=== PATIENT | female | born 1935 | race Asian ===

== ENCOUNTER 2017-03-12 09:04 | Observation (INO) | payer MEDICARE ==
[~2017-03-12] VITALS: Ht 162.6 cm; Wt 65.1 kg
[2017-03-12] VITALS (7 sets, daily range): BP systolic 130–149; BP diastolic 47–67; PULSE 54–58; RESP 10–20; O2SAT 94–97
[~2017-03-12 09:04] MED LIST: GLU500 PO; VERA180C5 PO; [UNRECOGNIZED DRUG - CODE] PO; [UNRECOGNIZED DRUG - CODE] PO
--- NOTE | 2017-03-12 09:20 | ED.REPORT ---
HPI-Abd Pain F 40 and Over Date of Service Mar 12, 2017 ED Provider: Meet Hearn MD Pt is an 81 y/o Japanese speaking female w/ a hx of GERD, HTN, DM, HLD, presenting to the ED w/ her daughter c/o nausea and vomiting onset 4 days ago. She has been experiencing persisting nausea and vomiting for 4 days, about 3-4 episodes each day. She had a black diarrheal stool yesterday. She c/o associated epigastric abdominal pain, chills, diaphoresis. Pt denies fever, SOB , cough. She states she experiences burning pain that tracks from the esophagus to the epigastrium when she drinks water. Symptoms are exacerbated by eating. The patient does experience acid reflux and previously used Prilosec but hasn't used any for 2 years. Pepto Bismol provided no relief. The patient had an endoscopy about 2 years ago performed at [facility] by request of her oncologist with benign polyps discovered. She does have a strong family history of gallbladder disease. Nursing Notes Stated Complaint: STOMACH PAIN Chief Complaint: Female Abdominal Pain Nursing Notes Reviewed: Yes ([employer] not reconciled) Allergies: Coded Allergies: No Known Allergies (Verified Allergy, Unknown, 03/12/17) Scheduled Aspirin-Expunged Drug, Do Not Renew! (Aspirin-Expunged Drug, Do Not Renew!) 500 Mg Tablet 81 MG PO DAILY Metformin-Expunged Drug, Do Not Renew! (Metformin-Expunged Drug, Do Not Renew!) 500 Mg Tablet 500 MG PO AM AM Metformin-Expunged Drug, Do Not Renew! (Metformin-Expunged Drug, Do Not Renew!) 500 Mg Tablet 1,000 MG PO HS TAKE WITH EVENING MEAL Miscellaneous Medications Benazepril-Expunged Drug, Do Not Renew! (Lotensin-Expunged Drug, Do Not Renew!) 5 Mg Tablet 0 PO Verapamil-Expunged Drug, Do Not Renew! (Verapamil-Expunged Drug, Do Not Renew!) 180 Mg Cap24h.pel 0 PO General Time Seen by MD: 09:09 Chief Complaint Vomiting moderate Hx Obtained From: Patient, Daughter Arrived By: Walk-in Sudden in Onset?: No Onset Occurred: 4 days ago Symptom Duration: Since onset Progression since Onset: Constant Location: : Epigastric Quality: Painful Severity: Current: Moderate Severity: Maximum: Moderate Recent Healthcare: No recent hospitalization Past Medical History Past Medical History Notes: Last seen in emergency department June 2012 for abdominal pain, unknown etiology right upper quadrant ultrasound negative at that time Past Medical History History of GERD w/Marshall's esophagus (Followed by GI in [place], ) History of breast cancer Diabetes Hypertension Hyperlipidemia Past Surgical History Right breast repair Hysterectomy Endoscopy Family History Family history of gallstones Smoking History Never Smoker Social History Alcohol Use: Denies alcohol use Drug Use: Denies drug use Other Social History: Good social support Ambulatory Status Independent Review of Systems Constitutional: Reports: Chills, Denies: Fever Respiratory: Denies: Non-productive cough, Shortness of breath GI: Reports: Abdominal pain, Bloody/tarry stool, Diarrhea, Nausea, Vomiting Complete sys rev & neg: except as marked. Skin: Reports Diaphoresis Physical Exam Vital Signs Vital Signs (First) Date Time Temp Pulse Resp B/P Pulse Ox O2 Delivery O2 Flow Rate FiO2 03/12/17 09:08 36.4 58 10 148/67 97 Room Air Initial VS: Reviewed, Vital signs normal Head / Eyes: Atraumatic, Normocephalic, PERRL ENT: Mucous membranes moist, Conjunctiva normal, No scleral icterus Neck: Supple, Full range of motion Extremities: Vascular intact, Neuro intact, No swelling Skin: Warm, Dry, No cyanosis Neurologic: Alert, Oriented, Nonfocal Psychiatric: Mood/affect normal, Behavior normal, Normal thought content General/Constitutional: Awake, Alert, No acute distress, Cooperative, Not toxic appearing Distress / Hydration: Positive: Dehydration mild Fatigued appearing Respiratory / Chest: Breath sounds NL, Breath sounds = bilat, No respiratory distress, No rales, No rhonchi, No wheezing Cardiovascular: Heart rate NL, Regular rhythm, Heart sounds NL, No murmurs Abdomen: Atraumatic, Soft, Non-tender, No guarding, No rebound, No distention, No palpable mass Back: Full range of motion, Painless range of motion Interpretation & Diagnostics Interpretation & Diagnostics: US RUQ: IMPRESSION: Gallbladder sludge, and possible gallstone in the neck. Borderline gallbladder wall thickening however no other sonographic criteria for acute cholecystitis, therefore please correlate clinically and with LFTs. Dictated by: Braden Banks M.D. on 03/12/2017 at 11:28 Approved by: Braden Banks M.D. on 03/12/2017 at 11:29 Lab Results Interpretation Result Diagram: 03/12/17 0951 03/12/17 0951 Test 03/12/17 09:51 White Blood Count 7.5th/mm3 (3.8-10.1) Red Blood Count 3.58mil/mm3 (3.90-5.20) Hemoglobin 10.4g/dL (12.0-15.6) Hematocrit 31.2% (35.0-46.0) Mean Corpuscular Volume 87.2fL (81-100) Mean Corpuscular Hemoglobin 29.1pg (27.0-35.0) Mean Corpuscular Hemoglobin Concent 33.3% (32.0-37.0) Red Cell Distribution Width 13.0% (12.3-15.4) Platelet Count 289bil/L (150-400) Neutrophils (%) (Auto) 64.4% (40-74) Lymphocytes (%) (Auto) 24.6% (14-46) Monocytes (%) (Auto) 9.3% (4-12) Eosinophils (%) (Auto) 1.5% (0-5) Basophils (%) (Auto) 0.1% (0-3) Sodium Level 138mEq/L (134-144) Potassium Level 4.2mEq/L (3.5-5.2) Chloride Level 101mEq/L (97-108) Carbon Dioxide Level 23mmol/L (18-29) Blood Urea Nitrogen 16mg/dL (8-27) Creatinine 0.97mg/dL (0.57-1.00) Estimat Glomerular Filtration Rate 79mL/min (>59) Glucose Level 101mg/dL (60-99) Lactic Acid Level 1.1mmol/L (0.4-2.0) Calcium Level 9.2mg/dL (8.5-10.1) Magnesium Level 2.2mg/dL (1.6-2.6) Total Bilirubin 0.6mg/dL (0.0-1.2) Aspartate Amino Transf (AST/SGOT) 15U/L (0-50) Alanine Aminotransferase (ALT/SGPT) 8U/L (0-32) Alkaline Phosphatase 51U/L (25-165) Troponin T 0.010ug/L (0.0-0.011) Total Protein 7.3g/dL (6.4-8.4) Albumin 4.5g/dL (3.4-5.0) Lipase 34U/L (13-60) Lab Results Interpretation: CBC normal CMP normal lipase normal ECG Interpretation ECG Interpretation: Sinus bradycardia rate 54 No prior available for comparison Time: 10:33 Interpreted by: ED physician Normal ECG Interpretation: Normal sinus rhythm, No acute ischemic changes, Normal QRS, Normal axis, Normal intervals, Adequate tracing CT Abd / Pelvis Interpretation IMPRESSION: No acute abnormality. Normal appendix. Hepatic steatosis. Nonspecific 4 mm nodule right lung base. Recommend followup noncontrast chest CT in one year to exclude early metastatic/malignant possibilities. Dictated by: Braden Banks M.D. on 03/12/2017 at 12:17 Approved by: Braden Banks M.D. on 03/12/2017 at 12:25 Study type: Abdominal CT IV contrast Interpretation / Wet Read by: Interpret - Radiologist Re-Eval/Medical Decision Med Decision/Clinical Course This is an 81-year-old Japanese female who presents complaining of epigastric pain nausea and increasing weakness since the past 4-5 days. Spent trying to get her to come to the emergency department, she has not been doing well-but she is thus far refused. Yesterday she took a hydrocodone for her discomfort which seemed to help-symptoms persist, she is very weak, and so was brought to the emergency department. She denies shreya fever, she does have a history of Law's esophagus and is supposed to be on a proton pump inhibitor while aside but has not been taking this in recent weeks. She denies GI bleeding. On exam she is very fatigued-but I do not appreciate significant abdominal tenderness. Initial blood work was normal, IV fluids and nausea medicine were given. EKG is without acute ischemic change. An ultrasound of the abdomen was obtained, and the preliminary tech read was probable cholecystitis, although the official radiology over read is more equivocal. Clinically I find her exam equivocal as well, but he discussed the case with the surgery hospitalist. Initial plan is admission, observation and serial exams. Continued hydration and antiemetics are indicated. Differential includes gastritis-patient reports she is followed by GI in [place] and had endoscopy there, records were obtained confirming the last endoscopy in 2010 for Law's esophagus Source of Hx: Old records Re-Evaluation/Progress : Time of Eval: 11:10 Patient Status: Moderate relief, Pain improved Re-Evaluation/Progress Note: Pt rechecked. Discussing imaging findings and likely need for surgery. Informed pt of need for admission. Pt understands and agrees with plan for admission. All questions addressed. Consultation #1: Referral / Consult Name: Yessica Prince MD Consulted With: Surgeon Call Returned at: 11:21 Life Science Research Assistant: Agrees with eval, Agrees with plan Note: Requests CT abd/pelvis. Consultation #2: Referral / Consult Name: Varinder Antonio MD Consulted With: Hospitalist Call Returned at: 11:37 Life Science Research Assistant: Will see patient, Agrees with eval, Agrees with plan, Accepts admit Differential Diagnosis: Positive: Acute abdominal pain, Negative: Abdominal aortic aneurysm, Ectopic , Esophageal rupture, Gun shot wound abdomen, Peritonitis, Stab wound abdomen, Trauma, abdominal Counseled Regarding: Diagnosis, Lab results, Need for admission Discharge & Departure Primary Impression: Abdominal pain Additional Impressions: Nausea Dehydration Cholelithiasis Disposition: ADMITTED TO HOSPITAL Discharge Condition All VS Reviewed: Yes Condition: Stable Referrals: Saw Crystal MD (PCP) Scribe Attestation Portions of this note were transcribed by Mingo Thapa. I, Dr. Hearn personally performed the history, physical exam and medical decision-making; I reviewed and confirmed the accuracy of the information in the transcribed note. copies to: Saw Crystal MD, Matthew F MD Mar 12, 2017 09:19 MINGO THAPA Mar 12, 2017 09:26
[2017-03-12] MEDS ORDERED: 0.9% Sodium Chloride 1,000 ML IV ONE (09:30)
[2017-03-12] MEDS ORDERED: Ondansetron 2 mg/mL 2 mL Inj IVPUSH ONE (09:30)
[2017-03-12] MEDS ORDERED: LidocaineVisc 2%:Antacid 1:1 10 mL Syringe PO ONE (09:35)
[2017-03-12 10:25] LABS: BASOPHILS % (AUTO) 0.1 % (0-3); EOSINOPHILS % (AUTO) 1.5 % (0-5); MONOCYTES % (AUTO) 9.3 % (4-12); Mean Corpuscular Hemoglobin 29.1 pg (27.0-35.0); Mean Corpuscular Volume 87.2 fL (81-100); NEUTROPHILS % (AUTO) 64.4 % (40-74); Platelet Count 289 bil/L (150-400)
[2017-03-12 10:50] LABS: Magnesium 2.2 mg/dL (1.6-2.6)
--- NOTE | 2017-03-12 11:32 | DRSVH ---
PROCEDURE: US ABDOMEN, LIMITED ([id number]) INDICATIONS: epigastric pain TECHNIQUE: Real-time focused scanning was performed of the abdomen, with image documentation. COMPARISON: None. FINDINGS: Liver is unremarkable. No intra-or extrahepatic no ductal dilatation. The gallbladder conta ins sludge. There is a possible gallstone at the gallbladder neck and there is borderline gallbladder wall thickening, however no pericholecystic fluid or sonographic Crain sign. Pancreas is grossly un remarkable. IMPRESSION: Gallbladder sludge, and possible gallstone in the neck. Borderline gallbladder wall thickening howeve r no other sonographic criteria for acute cholecystitis, therefore please correlate clinically and wi th LFTs. Dictated by: Braden Banks M.D. on 03/12/2017 at 11:28 Approved by: Braden Banks M.D. on 03/12/2017 at 11:29
[2017-03-12] MEDS ORDERED: Ondansetron 2 mg/mL 2 mL Inj IVPUSH PRN (11:40)
[2017-03-12] MEDS ORDERED: Alum-Mag Hydrox-Simeth 30 mL Suspension PO PRN (11:40)
[2017-03-12] MEDS ORDERED: Polyethylene Glycol (PEG) 17 Gm Powder PO PRN (11:40)
[2017-03-12] MEDS ORDERED: Glucose 40% Oral Gel 15 Gm Tube PO PRN (11:45)
[2017-03-12] MEDS: Insulin LISPRO 300 Unit/3 mL Inj SUBQ SCH ×3 (12:00→21:43)
--- NOTE | 2017-03-12 12:26 | DRSVH ---
PROCEDURE: CT ABDOMEN AND PELVIS WITH CONTRAST ([id number]) INDICATIONS: abd pain TECHNIQUE: After the administration of oral and intravenous contrast, 5 mm thick sections acquired from the diap hragms to the symphysis. 5 mm thick coronal and sagittal reformats were performed. For radiation do se reduction, the following was used: automated exposure control, adjustment of mA and/or kV accordi ng to patient size. COMPARISON: [facility], CT, ABD/PELVIS W/CON ([facility]), 06/29/2012, 19:23. FINDINGS: Image quality: Excellent. ABDOMEN: Lung bases: Bibasilar scarring/atelectasis. 4 mm nodule in the right lung base image 5, technically i ndeterminate. Solid organs: Hepatic steatosis otherwise, the liver and spleen are normal in size and enhancement. Gallbladder negative. Biliary system is non-dilated. Pancreas enhances normally. No adrenal nodule s. Bilateral renal cortical scarring. No hydronephrosis. Presumed subcentimeter bilateral renal cysts which are too small to characterize definitively and technically indeterminate Peritoneum and bowel: Distal stomach/gastric antrum is decompressed with unchanged appearance since 2 012. Small bowel, and colon loops are normal in caliber and wall thickness. No free fluid or air. N ormal appendix. Nodes and vessels: No retroperitoneal or mesenteric adenopathy. Aorta and inferior vena cava are no rmal in caliber. Miscellaneous: No ventral hernias. PELVIS: Genitourinary: Bladder wall thickness is normal. Miscellaneous: No inguinal hernias or adenopathy. Bones: No suspicious bony lesions. Presumed bone island seen in the left ilium image 75. No vertebra l body compression fractures. IMPRESSION: No acute abnormality. Normal appendix. Hepatic steatosis. Nonspecific 4 mm nodule right lung base. Recommend followup noncontrast chest CT in one year to exclu de early metastatic/malignant possibilities. Dictated by: Braden Banks M.D. on 03/12/2017 at 12:17 Approved by: Braden Banks M.D. on 03/12/2017 at 12:25
--- NOTE | 2017-03-12 12:30 | NUR ---
Admit Patient arrived to floor via gurney. Ambulated to bed from [facility] independently. A&Ox3, VSS. C/o 02/21 abd pain. Ambulates independently in room. No skin issues. Setswana speaking only, family at bedside. Call light with in reach,
[2017-03-12] MEDS: HYDROmorphone 0.5 mg/0.5 mL iSecure Syringe IVPUSH PRN ×2 (12:56→21:20)
[2017-03-12] MEDS: 0.9% Sodium Chloride 1,000 ML IV SCH ×2 (12:57→21:37)
[2017-03-12 14:07] LABS: TROPONIN T < 0.010 ug/L (0.0-0.011)
[2017-03-12 15:13] LABS: APPEARANCE,URINE CLEAR (CLEAR,HAZY); COLOR,URINE STRAW (YELLOW); OCCULT BLOOD,URINE SMALL (NEGATIVE); PH,URINE 6.5 (5.0-8.0); UROBILINOGEN,URINE NORMAL (NORMAL)
--- NOTE | 2017-03-12 15:21 | PCM.HPMED ---
Subjective Date of Service Mar 12, 2017 Primary Provider: Admitting Physician: Varinder Antonio MD Primary Care Physician: Saw Crystal MD Attending Physician: Varinder Antonio MD Admit Status: From the Emergency Department, Admit to [facility] Team Chief Complaint: 81-year-old woman with a history of dyspepsia presents with acute epigastric abdominal pain History of Present Illness: Patient has a long history of dyspepsia or previous peptic ulcer disease. She has increased frequency of her episodic epigastric pain over the past 3 months. The pain is continuous in character. It is improved With omeprazole and ranitidine, reportedly not with pantoprazole. Specific exacerbating factors. No associated symptoms. Last upper endoscopy was 2.5 years ago in [place]. She has had a gastric polyp but no gastric neoplasm. For 8 months she has had reduced appetite, following the of her . She is also had recent teeth extractions and a denture prescription which has not been fitted yet, both of which may have contributed to her reduced appetite. Uses low-dose aspirin daily. Occasional nonsteroidal use for arthritis. She was in her usual state of health 5 days prior to admission. In the morning 4 days prior to admission she had reduced appetite and ate a cracker, went to her doctor's appointment and vomited en route. Since that time she has experienced increased epigastric pain typical of her previous episodes but more intense. She has had mild nausea but no further vomiting. She had one episode of stool which the family describes as "inky black." Otherwise no further melena, no diarrhea. At the time of admission her epigastric pain is mild. Review of Systems: 11 systems were reviewed with findings noted in the history of present illness. Other findings include DJD worst in left knee. Allergies Coded Allergies: No Known Allergies (Verified Allergy, Unknown, 03/12/17) Home Medications Aspirin 81 mg daily Benazepril 5 mg daily [id number] mg twice a day Verapamil 180 mg daily Glyburide 10 mg twice a day Vitamin B12 supplement PMH # Dyspepsia, gastritis, gastric polyp # type II diabetes mellitus # Hypertension # Degenerative joint disease # Vitamin B-12 deficiency # Osteoporosis # History of treated breast cancer Family History Son with gastric cancer , 3 daughters with functional dyspepsia, mother with GERD Social History Hx Alcohol Use: No Hx Substance Use: No Smoking Status: Never Smoker Living Arrangement: Alone (daughters stay with mother on an alternating basis) Exam Vital Signs Vital Sign - Last Date Time Temp Pulse Resp B/P Pulse Ox O2 Delivery O2 Flow Rate FiO2 03/12/17 12:13 36.6 57 14 130/48 94 Room Air Exam General: Healthy-appearing elderly woman in no acute distress HEENT: sclerae anicteric, oral mucosa dry Neck: no JVD Chest: clear to auscultation Cardiac: S1S2, no murmur Abdomen: BS normal, mild localizes pain to epigastrium. Crain sign negative. No bloating. Extremities: No edema Neuro: Alert and appropriate but Sami speaking, cranial nerves symmetric, motor strength and coordination normal Lab and Diagnostics Result Diagram: 03/12/17 0951 03/12/17 0951 X-Rays, CTs and MRIs PROCEDURE: CT ABDOMEN AND PELVIS WITH CONTRAST ([id number]) IMPRESSION: No acute abnormality. Normal appendix. Hepatic steatosis. Nonspecific 4 mm nodule right lung base. Recommend followup noncontrast chest CT in one year to exclude early metastatic/malignant possibilities. Dictated by: Braden Banks M.D. on 03/12/2017 at 12:17 PROCEDURE: US ABDOMEN, LIMITED ([id number]) IMPRESSION: Gallbladder sludge, and possible gallstone in the neck. Borderline gallbladder wall thickening however no other sonographic criteria for acute cholecystitis, therefore please correlate clinically and with LFTs. Dictated by: Braden Banks M.D. on 03/12/2017 at 11:28 . 12-lead ECG Sinus bradycardia [address] and T waves Assessment & Plan 81-year-old woman with long history of dyspepsia and gastritis symptoms presents with severe episode of epigastric pain. # Epigastric pain, acute present on admission. Associated with one episode of melena. Severity worse than past episodes. High risk of peptic ulcer disease, possibly esophageal bleeding following emesis. - Type and screen, maintain dual peripheral IV access - IV H2 yamilet at present per family preference; consider alternatives for PPI - GI consult - Nothing by mouth after midnight for probable upper endoscopy in a.m. # Possible cholecystitis, acute, present on admission. - Ruled out # Blood loss anemia, acute, present on admission. Baseline hemoglobin from 2016 was 10.7. - Follow stool output and serial hemoglobin # Type II diabetes mellitus, chronic, present on admission. - [place] basal and correctional insulin regimen # Hypertension, chronic. - Hold benazepril due to concerns about volume depletion - Continue verapamil Disposition: Patient is admitted under observation status. Expect upper endoscopy in a.m. with possible discharge home. Significant findings on upper endoscopy may warrant inpatient admission. GI Prophylaxis: H2 yamilet VTE Prophylaxis Indicated: Contraindicated Resuscitation Status: CPR: Attempt Resuscitation Time spent 70 min Varinder Antonio MD Mar 12, 2017 15:21
[2017-03-12] MEDS ORDERED: Lansoprazole 30 mg ODTablet PO SCH (16:10)
--- NOTE | 2017-03-12 16:45 | PCM.CONSUR ---
Subjective Date of Service: Mar 12, 2017 History of Present Illness This is an 81 year old female who presents with epigastric pain of 5 days duration. Ms. Bradshaw is [place]vian and does not speak Portuguese so the history is obtained through the patient's daughter, Maryan. Reportedly, 5 days ago the patient developed gradual onset mid epigastric pain which has persisted. The pain is described as "burning" and unrelenting. The patient has taken 2 vicodin , which improved her pain, but it has returned once the pain medication wore off. In association, she has been unable to tolerate PO intake as even drinking water causes severe burning in her throat and chest. She has experienced intermittent dry heaving and nausea without any true emesis. Despite this, she has been attempting to maintain adequate hydration. Yesterday , she passed a dark liquid stool, and this happened again today. She is urinating normally. No fevers, but she has had intermittent chills and sweats. The patient's daughter brought her to the ED today because she has become very weak and fatigued since the pain started. Ms. Bradshaw has experienced similar self-limiting episodes of epigastric pain over the past several months but this was attributed to the stress from her and son's . Of note , the patient has a history of GERD and Barretts esophagus and is followed by GI in [place]. She reportedly last had an EGD 2.5 years ago which was normal. She has not been taking a PPI for the past 2 years and this was self- discontinued. Reason for Consultation Abdominal pain. Allergy Allergies: Coded Allergies: No Known Allergies (Verified Allergy, Unknown, 03/12/17) Medications Aspirin-Expunged Drug, Do Not Renew! (Aspirin-Expunged Drug, Do Not Renew!) 500 Mg Tablet 81 MG PO DAILY (Reported) Benazepril-Expunged Drug, Do Not Renew! (Lotensin-Expunged Drug, Do Not Renew!) 5 Mg Tablet 0 PO (Reported) Metformin-Expunged Drug, Do Not Renew! (Metformin-Expunged Drug, Do Not Renew!) 500 Mg Tablet 500 MG PO AM (Reported) AM Metformin-Expunged Drug, Do Not Renew! (Metformin-Expunged Drug, Do Not Renew!) 500 Mg Tablet 1,000 MG PO HS (Reported) TAKE WITH EVENING MEAL Verapamil-Expunged Drug, Do Not Renew! (Verapamil-Expunged Drug, Do Not Renew!) 180 Mg Cap24h.pel 0 PO (Reported) Past Surgical History Surgeries: Yes (hysterectomy for uterine prolapse, right mastectomy) Patient/Family Past Surgical: Positive for:: Accept Blood Products?, Denies:: Anesthesia Reactions, Blood Transfusions Social History Hx Alcohol Use: No Hx Substance Use: No Hx Tobacco Use: No PMH HEENT History History of ENT Problems?: No Cardiovascular History History of Heart Problems?: Yes Cardiovascular History: Positive for:: Hypertension Respiratory History of Respiratory Problem: No Neurological History Hx Neurologic Problems?: No Gastrointestinal History HX of GI Problems?: Yes Gastrointestinal History: Positive for:: Gastroesphageal Reflux Genitourinary History Hx of Gu Problems?: No Female/Male History Reproductive History Female: Positive for: Problems with Breasts? (Breast CA) Musculoskeletal History Hx Musculoskeletal Problems?: Yes Musculoskeletal History: Positive for:: Back Injury Psycho Social History Hx of Psycho/Social Problems?: No Other History Other History: Positive for:: Cancer (Breast CA) Diabetes: YesBedside Blood Glucose: 90 Social History Hx Alcohol Use: NoHx Substance Use: No Smoking Status: Never Smoker Living Arrangement: Alone (daughters stay with mother on an alternating basis) Spiritual Support: The patients and son have both in the past several months. Family History PMH Family Diagnosis: Other (Her son from gastric cancer. ) Objective Exam Vital Signs & I/O Vital Sign- Last 8 Hours Date Time Temp Pulse Resp B/P Pulse Ox O2 Delivery O2 Flow Rate FiO2 03/12/17 12:13 36.6 57 14 130/48 94 Room Air 03/12/17 12:13 37.3 56 18 138/58 96 Room Air 03/12/17 11:15 36.6 57 14 130/48 94 Room Air 03/12/17 09:08 36.4 58 10 148/67 97 Room Air Lab & Micro Results Laboratory Tests Test 03/12/17 09:51 03/12/17 13:24 03/12/17 14:43 03/12/17 16:00 White Blood Count 7.5th/mm3 (3.8-10.1) Red Blood Count 3.58mil/mm3 (3.90-5.20) Hemoglobin 10.4g/dL (12.0-15.6) 10.5g/dL (12.0-15.6) Hematocrit 31.2% (35.0-46.0) 32.2% (35.0-46.0) Mean Corpuscular Volume 87.2fL (81-100) Mean Corpuscular Hemoglobin 29.1pg (27.0-35.0) Mean Corpuscular Hemoglobin Concent 33.3% (32.0-37.0) Red Cell Distribution Width 13.0% (12.3-15.4) Platelet Count 289bil/L (150-400) Neutrophils (%) (Auto) 64.4% (40-74) Lymphocytes (%) (Auto) 24.6% (14-46) Monocytes (%) (Auto) 9.3% (4-12) Eosinophils (%) (Auto) 1.5% (0-5) Basophils (%) (Auto) 0.1% (0-3) Sodium Level 138mEq/L (134-144) Potassium Level 4.2mEq/L (3.5-5.2) Chloride Level 101mEq/L (97-108) Carbon Dioxide Level 23mmol/L (18-29) Blood Urea Nitrogen 16mg/dL (8-27) Creatinine 0.97mg/dL (0.57-1.00) Estimat Glomerular Filtration Rate 79mL/min (>59) Glucose Level 101mg/dL (60-99) Lactic Acid Level 1.1mmol/L (0.4-2.0) Calcium Level 9.2mg/dL (8.5-10.1) Magnesium Level 2.2mg/dL (1.6-2.6) Total Bilirubin 0.6mg/dL (0.0-1.2) Aspartate Amino Transf (AST/SGOT) 15U/L (0-50) Alanine Aminotransferase (ALT/SGPT) 8U/L (0-32) Alkaline Phosphatase 51U/L (25-165) Troponin T 0.010ug/L (0.0-0.011) < 0.010ug/L (0.0-0.011) Total Protein 7.3g/dL (6.4-8.4) Albumin 4.5g/dL (3.4-5.0) Lipase 34U/L (13-60) Procalcitonin 0.07ng/mL (0.00-0.08) Urine Color Straw (YELLOW) Urine Appearance Clear (CLEAR,HAZY) Urine pH 6.5 (5.0-8.0) Urine Specific [place] 1.010 (1.003-1.035) Urine Protein Negativemg/dL (NEG,TRACE) Urine Glucose (UA) Negativemg/dL (NEGATIVE) Urine Ketones Negativemg/dL (NEGATIVE) Urine Occult Blood Small (NEGATIVE) Urine Nitrite Negative (NEGATIVE) Urine Bilirubin Negative (NEGATIVE) Urine Urobilinogen Normalmg/dL (NORMAL) Urine Leukocyte Esterase Small (NEGATIVE) Urine RBC 0-2/hpf (0-2) Urine WBC 0-5/hpf (0-5) Urine Epithelial Cells Few/hpf (NONE-MOD) Urine Crystals None seen (NONE SEEN) Urine Bacteria Few/hpf (NONE-FEW) Urine Hyaline Casts None/lpf (NONE) Urine Granular Casts None seen (NONE SEEN) Urine Waxy Casts None seen (NONE SEEN) Urine Red Blood Cell Casts None seen (NONE SEEN) Urine White Blood Cell Casts None seen (NONE SEEN) Urine Mucus None seen (None Seen) Urine Trichomonas None seen (NONE SEEN) Urine Yeast None (NONE SEEN) Urinalysis Comment None Urine Culture Reflexed Indicated Microbiology 03/12/17 Urine Culture, Received Pending Result Diagram: 03/12/17 1600 03/12/17 0951 Review of Systems: Constitutional: Negative, except as otherwise mentioned in the history above. Ophthalmologic: Negative, except as otherwise mentioned in the history above. Cardiovascular: Negative, except as otherwise mentioned in the history above. Respiratory: Negative, except as otherwise mentioned in the history above. Gastrointestinal: Negative, except as otherwise mentioned in the history above. Genitourinary: Negative, except as otherwise mentioned in the history above. Musculoskeletal: Negative, except as otherwise mentioned in the history above. Neurological: Negative, except as otherwise mentioned in the history above. Psychiatric: Negative, except as otherwise mentioned in the history above. Hematologic/Lymphatic: Negative, except as otherwise mentioned in the history above. Allergic/Immunologic: Negative, except as otherwise mentioned in the history above. Additional Information CT A/P: There some thickening of the distal esophagus which is unchanged in comparison to a prior CT in 2012. Otherwise, there is no acute abnormality and there is no evidence of pancreaticobiliary pathology. US abdomen: Gallbladder sludge, and possible gallstone in the neck. Borderline gallbladder wall thickening however no other sonographic criteria for acute cholecystitis H&P Surgical Exam Exam General: Alert, Cooperative, No Acute Distress HEENT: Within normal limits & unremarkable Respiratory: Clear to Auscultation Cardiac: Exam Unremarkable Abdomen: Other (Mildly tender in the epigastrium. No other tenderness. Negative Crain's sign. No masses or hernias appreciated. Soft and nondistended. ) Breasts: Not Indicated Pelvic: Not Indicated Assessment & Plan Assessment 81F with undifferentiated epigastric pain. In light of her normal LFTs, WBC, CT scan, and lack of any RUQ pain or tenderness, her symptoms are unlikely to represent gallbladder pathology and at the very least warrant additional work up prior to consideration of a cholecystectomy. Plan: - Agree with admission to our medicine colleagues for additional work up and management of her epigastric pain. - She should be evaluated by GI, for consideration of an EGD in lieu of her history of Barrets, GERD, and family history of gastric cancer - Stool guaic for melena, though her H&H are stable from last labs in 2011. - General surgery will continue to follow along - Patient and her daughter were updated on this plan and are in agreement Case discussed with Dr. Prince. Resuscitation Status: CPR: Attempt Resuscitation Gary Cazares MD Mar 12, 2017 16:45
--- NOTE | 2017-03-12 16:52 | CONS ---
[address] [address] CONSULTATION REPORT PATIENT: CARMEN RIVERA : 1935 MR#: [id number] ADMIT: 03/12/2017 JOB ID: [id number] GASTROENTEROLOGY CONSULTATION: DATE OF SERVICE: 03/12/2017 REASON FOR CONSULTATION: Epigastric pain. HISTORY OF PRESENT ILLNESS: This is an 81-year-old, Indonesian female with a history of osteoporosis, breast cancer, type 2 diabetes, hypertension, degenerative joint disease, vitamin B12 deficiency and a son who of gastric cancer. Presents for consultation for epigastric pain during the past three months. The patient states her epigastric pain was a 10/10, sharp, constant, radiating to the back, worse with food. Patient last had an EGD and colonoscopy three years ago up in [place] which showed one polyp in the colon. I have no records. The patient states that the EGD was normal. The patient only states that she had one episode of melenic stool during this past week. The patient states she had no longer has melena or rectal bleeding, nausea, vomiting, hematemesis, change in bowel habits. The patient states she has not been eating well because of her teeth and therefore has been losing weight. The patient was given Protonix during this admission but then switched to IV famotidine. The patient also states that she had an upper endoscopy in 2010 showing Law's esophagus. I do not have the upper endoscopy results. The patient had abdominal ultrasound that was done here showing gallbladder sludge and possible gallstone within the neck of the gallbladder. CT abdomen and pelvis was unrevealing, did not reveal any gallstones. The patient's lipase was 34. The patient's transaminases were normal with lactic acid 1.1. The patient presents for further evaluation. PAST MEDICAL HISTORY: As stated above. PAST SURGERIES: Right breast repair, hysterectomy. ALLERGIES: None. MEDICATIONS: At home, aspirin, metformin, verapamil, benazepril. SOCIAL HISTORY: No smoking, alcohol, or drugs. FAMILY HISTORY: Positive for gastric cancer but no inflammatory bowel disease, colon cancer, or celiac disease. REVIEW OF SYSTEMS: The patient denies headache, blurred vision, nausea, vomiting, chest pain, shortness of breath. Positive for abdominal pain. No skin rashes or joint pain. PHYSICAL EXAMINATION: Vital signs upon presentation: Her temperature is 36.6, pulse of 57, respiratory rate of 18, blood pressure 130/48, satting 94% room air. General: In no acute distress. Head: No scars. Eyes: Anicteric. Throat is supple. Lungs: Clear to auscultation bilaterally. Cardiovascular: Regular rhythm and rate. Abdomen: Soft, nondistended, nontender. Positive epigastric pain on palpation. Normoactive bowel sounds. Extremities: No cyanosis, clubbing, or edema. LABORATORIES: Sodium 138, potassium 4.2 chloride 101, bicarb 23, BUN 16, creatinine 0.9. Glucose 101. Lactic acid 1.1. Calcium 9.2, magnesium 2.2. Total bili 0.6, AST 15, ALT 8, alk phos 51. Troponin is negative. Total protein 7.3, albumin 4.5, lipase 34. White count 10.5, hemoglobin 10.4, hematocrit 31, platelet count 289. ASSESSMENT AND PLAN: This is an 81-year-old, Indonesian female with a history of presumed Law's esophagus on upper endoscopy in 2010, history of breast cancer, diabetes, hypertension, hyperlipidemia, status post hysterectomy, right breast repair, presents here with epigastric pain for the past three months. Differential diagnosis includes peptic ulcer disease, H. pyloric gastritis versus possible gallstones seen on ultrasound versus uncontrolled gastrointestinal reflux disease. RECOMMENDATIONS: 1. MRCP to rule out gallstones, especially what was seen on the ultrasound with gallstone within neck of the gallbladder. 2. NPO after midnight for an EGD with anesthesia tomorrow scheduled at 10 a.m. 3. I do recommend a Protonix drip at this point in time instead of famotidine drip, given the fact that she had one melenic stool and with her history of Law's esophagus, patient should be on a PPI rather than H2 yamilet. 4. Serial abdominal examinations. [facility] to follow. [facility]
--- NOTE | 2017-03-12 17:11 | DRSVH ---
PROCEDURE: MR ABDOMEN MRCP INDICATIONS: Possible cholelithiasis on ultrasound. TECHNIQUE: Coronal HASTE through the abdomen, axial 2-D FLASH in- and [id number], and breath-hold T2 FSE with fat saturation through the biliary system and pancreas. Oblique coronal and axial thin-slice HASTE, radial thick-slab HASTE centered on the extrahepatic bile ducts. Intravenous secretin: Not requested. COMPARISON: [facility], US, ABDOMEN LTD, 03/12/2017, 9:50. [facility], CT, C T ABD PELVIS W CON, 03/12/2017, 11:43. FINDINGS: Image quality: There is motion artifact limiting evaluation. Pancreas and biliary system: There is a small filling defect consistent with gallstone in the gallbl adder neck measuring up to approximately 7 mm, with evaluation limited due to motion artifact. There is mild gallbladder wall thickening measuring approximately 5 mm. No pericholecystic fluid. Intra- and extra-hepatic biliary ducts are non dilated. No definite filling defects identified within the common bile duct. Pancreas is normal in morphology, without adjacent soft tissue edema. Pancreatic d uct is normal in caliber, without developmental anomalies. Other solid organs: Liver and spleen are normal in size. No adrenal nodules. There are small left renal cysts and mild nonspecific perinephric edema bilaterally. Nodes and vessels: No retroperitoneal or mesenteric adenopathy by size criteria. Aorta and inferior vena cava are normal in size. Bowel and peritoneum: Visualized bowel loops are normal in caliber. No free fluid. Lung bases: No basal pleural effusions. Heart size is normal. Bones and soft tissues: No ventral hernias. Bone marrow is of normal overall signal. IMPRESSION: 1. Limited evaluation due to extensive motion artifact demonstrates a probable small gallstone at th e gallbladder neck with mild gallbladder wall thickening suspicious for developing cholecystitis. 2. No definite evidence of choledocholithiasis or biliary ductal dilatation. Dictated by: Grayson Kenny M.D. on 03/12/2017 at 17:10 Approved by: Grayson Kenny M.D. on 03/12/2017 at 17:10
[2017-03-12] MEDS: Heparin 5,000 Unit/mL Inj SUBQ SCH (17:21)
[2017-03-12] MEDS ORDERED: AMLO10TA3 PO (17:56)
--- NOTE | 2017-03-12 19:54 | NUR ---
MANUEL explained to pt's daughter and ESTUARDO who are at bedside. MANUEL signed, copy of MANUEL and Medicare self administered medication information given to pt.
[2017-03-12] MEDS ORDERED: Famotidine Inj 20 MG in IV Premix 1 EACH IV SCH (20:30)
[2017-03-12] MEDS ORDERED: Insulin GLARgine 100 Unit/mL Syringe SUBQ SCH (21:00)
[2017-03-13] MEDS: Heparin 5,000 Unit/mL Inj SUBQ SCH ×2 (00:56→07:42)
[2017-03-13] MEDS: HYDROmorphone 0.5 mg/0.5 mL iSecure Syringe IVPUSH PRN (00:56)
[2017-03-13 02:57] VITALS: BP 112/44; PULSE 50; RESP 14; O2SAT 96
--- NOTE | 2017-03-13 05:45 | NUR ---
Pain/BG IVP dilaudid given x2 with effective results for abdominal pain. Pt denies N/V. NPO since midnight in prep for upper endoscopy this AM. Per her request, this bond writer called pt's daughter and left a voicemail letting her know when the procedure will take place. BG 85 this AM. Care continues
[2017-03-13] MEDS: 0.9% Sodium Chloride 1,000 ML IV SCH (06:52)
[2017-03-13] MEDS ORDERED: Pantoprazole Inj 80 MG in 0.9% Sodium Chloride 80 ML IV SCH ×2 (07:30→08:10)
[2017-03-13 07:36] VITALS: BP 139/62; PULSE 58; RESP 16; O2SAT 95
[2017-03-13] MEDS: Insulin LISPRO 300 Unit/3 mL Inj SUBQ SCH ×2 (07:43→11:18)
--- NOTE | 2017-03-13 09:10 | PCM.HPANE ---
Patient Data Surgeon Admitting Provider:Varinder Antonio MD Attending Provider:Varinder Antonio MD Primary Care Physician:Saw Crystal MD Other Provider: Reason for Visit Cholecystitis Ht/WT & BMI Height (Feet): 5 Height (Inches): 4.00 Weight (Kilograms): 65.100 Body Mass Index 24.50 Allergies Coded Allergies: No Known Allergies (Verified Allergy, Unknown, 03/12/17) Past Anesthesia History Anesthesia History: Denies:: Anesthesia Reactions Diabetes History Hx Diabetes?: Yes Current Bedside Blood Glucose: 84 MRSA MRSA: No Medications Reported Medications Amlodipine 10 Mg Tablet1 Tablet PO DAILY #90 03/12/17 Aspirin-Expunged Drug, Do Not Renew! 500 Mg [id number] Mg PO DAILY 06/29/12 Verapamil-Expunged Drug, Do Not Renew! 180 Mg Cap24h.pel Po 06/29/12 Benazepril-Expunged Drug, Do Not Renew! (Lotensin-Expunged Drug, Do Not Renew!) 5 Mg Tablet Po 06/29/12 Metformin-Expunged Drug, Do Not Renew! 500 Mg Tablet1,000 Mg PO HS #30 TAB TAKE WITH EVENING MEAL 06/29/12 Metformin-Expunged Drug, Do Not Renew! 500 Mg [id number] Mg PO AM #30 TAB AM 06/29/12 History History of ENT Problems?: No HEENT History: Denies:: Abnormal Airway Cataracts Difficult Intubation Dysphagia Glaucoma Hearing Problem Sinus Problem TMJ Denture Type: Full- Upper Full- Lower Teeth Condition: Within Normal Limits Hx of Heart Problems?: Yes Cardiovascular History: Positive for:: Hypertension Denies:: AICD Abdominal Aortic Aneurism Atrial Fibrillation Cardiac Surgery Chest Pain Congestive Heart Failure Coronary Artery Disease Edema Heart Murmur Irregular Heartbeat Pacemaker Peripheral Vascular Rheumatic Fever Thrombophlebitis Valvular Heart Disease Hx of Respiratory Problem?: No Respiratory History: Denies:: Asthma COPD Chest Surgery Cough Dyspnea Emphysema Hemoptysis Oxygen Administration Pneumonia Pulmonary Embolism Tuberculosis Use of C-PAP Machine Use of Inhalers / NEBS Hx Neurologic Problems?: No Neurological History: Denies:: Alzheimer's Disease CVA Dementia Dizziness Headaches Multiple Sclerosis Parkinson's Disease Peripheral Neuropathy Seizures TIA Hx of GI Problems?: Yes Gastrointestinal History: Positive for:: Gastrointestinal Bleeding Hx of Problems?: No Female Hx: Positive for:: Problems with Breasts? (Breast CA) Skin History: Denies:: History Skin Disorders? Pressure Ulcers Hx Musculoskeletal Problems?: Yes Musculoskeletal History: Positive for:: Back Injury Hx of Psycho/Social Problems?: No Psycho Social History: Denies:: Anxiety Bipolar Disorder Hx Depression Suicide Attempt Hx Surgeries?: Yes (hysterectomy for uterine prolapse, right mastectomy) Other History: Positive for:: Cancer (Breast CA) History Blood Transfusions: Positive for:: Accept Blood Products? Denies:: Blood Transfusions Hx Diabetes: YesBedside Blood Glucose: 84 Hx Alcohol Use: NoHx Substance Use: No Smoking Status: Never Smoker Have You Smoked inLast 12 mo: No Stop/Bang Treated for Sleep Apnea?: No Do You Have a CPAP Machine?: No S-Snoring: Do You Snore Loudly: Yes T-Tired: feel tired, fatigued: Yes O-Obsered: Observed not breath: Yes P-Blood Pressure: treated: Yes B- Body Mass Index > 35 kg/m2: No A- Age over 50: Yes N- Neck Large Circumference: No G- Gender Male: Yes BERENICE Total Score: 5 BERENICE Risk Assessment: High Risk, =/>3 Yes Risk Assessment Category Category 1A: Patient has history of documented sleep apnea, and HAS NOT received any narcotic, sedative or anesthesia administration during this stay. Category 1B: Patient has history of documented sleep apnea, and HAS received any narcotic , sedative or anesthesia administration during this stay Category 2: Patient has SUSPECTED Obstructive Sleep Apnea, and HAS received any narcotic , sedative or anesthesia administration during this stay. Category 3: Patient has SUSPECTED Obstructive Sleep Apnea and HAS NOT received narcotic, sedative or anesthesia administration during this stay. Category 4: Outpatient in Procedural Areas with known sleep apnea or who screen positive for High Risk via the STOP/BANG questionnaire. Exam Exam Vital Signs Vital Signs Date Time Temp Pulse Resp B/P Pulse Ox O2 Delivery O2 Flow Rate FiO2 03/13/17 07:36 37.1 58 16 139/62 95 Room Air 03/13/17 02:57 37.3 50 14 112/44 96 Room Air General Appearance: Alert, Cooperative, No Acute Distress HEENT/AIRWAY: MP 2 Lungs: Clear to Auscultation Heart: Exam Unremarkable Meds/Labs/Diagnostics Admission Meds Current Medications Sodium Chloride (Normal Saline) 1,000 ml @ 0 mls/hr Q0M ONCE IV Last administered on 03/12/17 10:02; Start 03/12/17 at 09:30; Stop 03/12/17 at 09:32 ; Status DC Ondansetron HCl (Zofran Inj) 8 mg ONCE ONCE IVPUSH Last administered on 10:02; Start 03/12/17 at 09:30; Stop 03/12/17 at 09:32; Status DC Miscellaneous (GI Cocktail #2 10 mL) 10 ml ONCE ONCE PO Last administered on 10:25; Start 03/12/17 at 09:35; Stop 03/12/17 at 09:37; Status DC Heparin Sodium (Porcine) 5000 unit 5,000 unit Q8 SUBQ Last administered on 03/13 00:56; Start 03/12/17 at 16:30 Sodium Chloride 1,000 ml @ 100 mls/hr Q10H IV Last administered on 03/13/17 06:52; Start 03/12/17 at 11:36 Famotidine/Sodium Chloride/Premix (Pepcid Inj/IV Premix) 50 ml @ 100 mls/hr Q12 IV Last administered on 03/12/17 19:38; Start 03/12/17 at 20:30; Stop at 07:30; Status DC Insulin Glargine (Lantus Insulin Inj) 10 unit HS SUBQ Last administered on 03/12 21:15; Start 03/12/17 at 21:00 Lansoprazole (Prevacid-ODT) 30 mg DAILY PO Last administered on 03/12/17 17:22 ; Start 03/12/17 at 16:10; Stop 03/13/17 at 07:30; Status DC Bedside Blood Glucose: 84 Labs Test 03/12/17 09:51 03/12/17 13:24 03/12/17 14:43 03/12/17 16:00 White Blood Count 7.5th/mm3 (3.8-10.1) Red Blood Count 3.58mil/mm3 (3.90-5.20) Mean Corpuscular Volume 87.2fL (81-100) Mean Corpuscular Hemoglobin 29.1pg (27.0-35.0) Mean Corpuscular Hemoglobin Concent 33.3% (32.0-37.0) Red Cell Distribution Width 13.0% (12.3-15.4) Platelet Count 289bil/L (150-400) Neutrophils (%) (Auto) 64.4% (40-74) Lymphocytes (%) (Auto) 24.6% (14-46) Monocytes (%) (Auto) 9.3% (4-12) Eosinophils (%) (Auto) 1.5% (0-5) Basophils (%) (Auto) 0.1% (0-3) Sodium Level 138mEq/L (134-144) Potassium Level 4.2mEq/L (3.5-5.2) Chloride Level 101mEq/L (97-108) Carbon Dioxide Level 23mmol/L (18-29) Blood Urea Nitrogen 16mg/dL (8-27) Creatinine 0.97mg/dL (0.57-1.00) Estimat Glomerular Filtration Rate 79mL/min (>59) Glucose Level 101mg/dL (60-99) Lactic Acid Level 1.1mmol/L (0.4-2.0) Calcium Level 9.2mg/dL (8.5-10.1) Magnesium Level 2.2mg/dL (1.6-2.6) Total Bilirubin 0.6mg/dL (0.0-1.2) Aspartate Amino Transf (AST/SGOT) 15U/L (0-50) Alanine Aminotransferase (ALT/SGPT) 8U/L (0-32) Alkaline Phosphatase 51U/L (25-165) Total Protein 7.3g/dL (6.4-8.4) Albumin 4.5g/dL (3.4-5.0) Lipase 34U/L (13-60) Troponin T < 0.010ug/L (0.0-0.011) Procalcitonin 0.07ng/mL (0.00-0.08) Urine Color Straw (YELLOW) Urine Appearance Clear (CLEAR,HAZY) Urine pH 6.5 (5.0-8.0) Urine Specific [place] 1.010 (1.003-1.035) Urine Protein Negativemg/dL (NEG,TRACE) Urine Glucose (UA) Negativemg/dL (NEGATIVE) Urine Ketones Negativemg/dL (NEGATIVE) Urine Occult Blood Small (NEGATIVE) Urine Nitrite Negative (NEGATIVE) Urine Bilirubin Negative (NEGATIVE) Urine Urobilinogen Normalmg/dL (NORMAL) Urine Leukocyte Esterase Small (NEGATIVE) Urine RBC 0-2/hpf (0-2) Urine WBC 0-5/hpf (0-5) Urine Epithelial Cells Few/hpf (NONE-MOD) Urine Crystals None seen (NONE SEEN) Urine Bacteria Few/hpf (NONE-FEW) Urine Hyaline Casts None/lpf (NONE) Urine Granular Casts None seen (NONE SEEN) Urine Waxy Casts None seen (NONE SEEN) Urine Red Blood Cell Casts None seen (NONE SEEN) Urine White Blood Cell Casts None seen (NONE SEEN) Urine Mucus None seen (None Seen) Urine Trichomonas None seen (NONE SEEN) Urine Yeast None (NONE SEEN) Urinalysis Comment None Urine Culture Reflexed Indicated Hemoglobin 10.5g/dL (12.0-15.6) Hematocrit 32.2% (35.0-46.0) Plan Impression Patient chart reviewed, patient interviewed and anesthestic plan with risks, benefits, and alternatives discussed, and informed consent obtained. NPO per Anesth. Guidelines: Yes ASA Physical Status: ASA2 Mod Systemic Disease Anesthetic Plan: MAC Bene/Risks/Altern/Consents: Yes HP Complete Prior to Induction: Yes Other director social service service used Nishant Kyle MD Mar 13, 2017 09:10
[2017-03-13 10:05] VITALS: BP 123/57; PULSE 50; RESP 17; O2SAT 97
[2017-03-13] MEDS ORDERED: Lactated Ringer's 1,000 ML IV ONE (10:05)
--- NOTE | 2017-03-13 10:08 | PCM.ANEP1 ---
Post Anesthesia PACU Phase 1 Assessment Vital Signs 123/57 p50 [id number] Vital Signs Date Time Temp Pulse Resp B/P Pulse Ox O2 Delivery O2 Flow Rate FiO2 03/13/17 07:36 37.1 58 16 139/62 95 Room Air 03/13/17 02:57 37.3 50 14 112/44 96 Room Air Anesthetic Administered: GA Level of Alertness: Awake, talking Pain: No Pain Scale Score: 0 Nausea or Vomiting: No CV Function & Hydration Stable: No Airway Device: Lungs: Clear to Auscultation Dermatome Level: Full Sensation PACU Phase 2 Assessment Complications: No Follow up Care: No Patient Instructions Provided: N/A Nishant Kyle MD Mar 13, 2017 10:08
[2017-03-13 10:10] VITALS: BP 123/58; PULSE 52; RESP 17; O2SAT 97
--- NOTE | 2017-03-13 10:32 | NUR ---
Off unit/prontonix Patient off unit this AM for EGD. Patient arrived back to floor around 1030. PAtient A&Ox3. VS. Protonix drip not started as patient will transition to PO per Dr Antonio.
[2017-03-13] MEDS ORDERED: Pantoprazole 40 mg ER24 Tablet PO SCH (10:40)
--- NOTE | 2017-03-13 10:54 | ENDO ---
[address] [address] ENDOSCOPY PROCEDURE PATIENT: CARMEN RIVERA : 1935 MR#: [id number] ADMIT: 03/12/2017 JOB ID: [id number] DATE OF SERVICE: 03/13/2017 TYPE OF OPERATION: Esophagogastroduodenoscopy with biopsy. PREOPERATIVE DIAGNOSIS: Epigastric pain. POSTOPERATIVE DIAGNOSIS: Clean based nonbleeding 3 mm antral ulcer in the distal stomach status post biopsy. ANESTHESIA: Monitored anesthesia care. COMPLICATIONS: None. BLOOD LOSS: Minimal. DESCRIPTION OF PROCEDURE: After risks and benefits explained, the informed consent was obtained. After anesthesia administered, upper endoscope was inserted into the mouth, intubated through the esophagus, stomach, second portion of the duodenum. Mucosa carefully examined. After the procedure was done, the scope withdrawn and procedure terminated. FINDINGS: Upon inspection esophagus was normal without masses, ulcers, or lesions. Z-line located 40 cm from incisors. Upon entry stomach there was a clean based nonbleeding 3 mm ulcer in the antrum of the stomach. This was biopsied. Retroflexion was normal. Duodenal bulb, first and second portion normal. Biopsies taken in the antral ulcer body and distal esophagus. IMPRESSION: Clean based nonbleeding 3 mm ulcer in the antrum status post biopsy. RECOMMENDATIONS: 1. Await pathology results. 2. Protonix 40 mg by mouth twice a day. 3. Carafate 1 g by mouth four times a day. 4. Okay to start clear liquid diet, advance as tolerated.
[2017-03-13 11:18] VITALS: BP 137/70; PULSE 52; RESP 16; O2SAT 97
[2017-03-13] MEDS ORDERED: Sucralfate 1,000 mg Tablet PO SCH (11:30)
[2017-03-13] MEDS ORDERED: PANT40TA2 PO (13:18)
[2017-03-13] MEDS ORDERED: SUCR1TAB30 PO (13:18)
--- NOTE | 2017-03-13 13:22 | PCM.DIMED ---
Discharge Instructions Date of Service Mar 13, 2017 Dates of Hospitalization Mar 12, 2017 at 11:36 Discharge Diagnosis Discharge Diagnosis Gastric ulcer Hypertension Diabetes mellitus type II Medication Instructions Additional med instructions TWO prescriptions for Protonix and [facility]. You should check with your primary care provider about what medications to take for diabetes and blood pressure. Diet Discharge Diet: Diabetic Activity Discharge Activity: No restrictions Call your provider Call your provider for: Other (abdominal pain or bleeding in bowel movements) Patient Instructions Follow-up Provider: Srinivas Dasilva MD Follow-up with PCP in: 1 week (for a post hospital follow-up visit) Provider: Vj Alfredo MD Follow-up in: Other (contact the [facility] gastroenterology clinic for a follow-up with Dr. Alfredo or one of his colleagues in approximately 4-6 weeks) Varinder Antonio MD Mar 13, 2017 13:22
--- NOTE | 2017-03-13 13:46 | PCM.DC.MED ---
Discharge Summary Date of Service Mar 13, 2017 Dates of Hospitalization Date of Hospital Admission Mar 12, 2017 at 11:36 Date of Discharge: Mar 13, 2017 Providers: Admitting Physician: Dl Herrera MD Primary Care Physician: Saw Crystal MD Attending Physician: Dl Herrera MD Diagnosis at Time of Discharge Diagnosis at Time of Discharge Gastric ulcer Hypertension Diabetes mellitus type II Procedures XRay, CTs & MRIs PROCEDURE: CT ABDOMEN AND PELVIS WITH CONTRAST ([id number]) IMPRESSION: No acute abnormality. Normal appendix. Hepatic steatosis. Nonspecific 4 mm nodule right lung base. Recommend followup noncontrast chest CT in one year to exclude early metastatic/malignant possibilities. Dictated by: Braden Banks M.D. on 03/12/2017 at 12:17 PROCEDURE: US ABDOMEN, LIMITED ([id number]) IMPRESSION: Gallbladder sludge, and possible gallstone in the neck. Borderline gallbladder wall thickening however no other sonographic criteria for acute cholecystitis, therefore please correlate clinically and with LFTs. Dictated by: Braden Banks M.D. on 03/12/2017 at 11:28 . ECG 12 Lead Sinus bradycardia [address] and T waves Other Diagnostics ENDOSCOPY PROCEDURE PATIENT: CARMEN RIVERA : 1935 DATE OF SERVICE: 03/13/2017 FINDINGS: Upon inspection esophagus was normal without masses, ulcers, or lesions. Z-line located 40 cm from incisors. Upon entry stomach there was a clean based nonbleeding 3 mm ulcer in the antrum of the stomach. This was biopsied. Retroflexion was normal. Duodenal bulb, first and second portion normal. Biopsies taken in the antral ulcer body and distal esophagus. IMPRESSION: Clean based nonbleeding 3 mm ulcer in the antrum status post biopsy. RECOMMENDATIONS: 1. Await pathology results. 2. Protonix 40 mg by mouth twice a day. 3. Carafate 1 g by mouth four times a day. 4. Okay to start clear liquid diet, advance as tolerated. Vj Alfredo MD 03/13/17 5477 Brief History History of Present Illness (per admission note): Patient has a long history of dyspepsia or previous peptic ulcer disease. She has increased frequency of her episodic epigastric pain over the past 3 months. The pain is continuous in character. It is improved With omeprazole and ranitidine, reportedly not with pantoprazole. Specific exacerbating factors. No associated symptoms. Last upper endoscopy was 2.5 years ago in [place]. She has had a gastric polyp but no gastric neoplasm. For 8 months she has had reduced appetite, following the of her . She is also had recent teeth extractions and a denture prescription which has not been fitted yet, both of which may have contributed to her reduced appetite. Uses low-dose aspirin daily. Occasional nonsteroidal use for arthritis. She was in her usual state of health 5 days prior to admission. In the morning 4 days prior to admission she had reduced appetite and ate a cracker, went to her doctor's appointment and vomited en route. Since that time she has experienced increased epigastric pain typical of her previous episodes but more intense. She has had mild nausea but no further vomiting. She had one episode of stool which the family describes as "inky black." Otherwise no further melena, no diarrhea. At the time of admission her epigastric pain is mild. Hospital Course # Epigastric pain, acute present on admission. Associated with one episode of melena. Severity worse than past episodes. High risk of peptic ulcer disease, possibly esophageal bleeding following emesis. - No stool output or evidence of acute GI bleeding - Endoscopy results noted - Tolerated solid food after procedure with no complaints - High-dose PPI and sucralfate - Follow-up in GI clinic 4-6 weeks. # Possible cholecystitis, acute, present on admission. - Ruled out # Blood loss anemia, acute, present on admission. Baseline hemoglobin from 2016 was 10.7. - Hemoglobin was stable at baseline # Type II diabetes mellitus, chronic, present on admission. - [place] basal and correctional insulin regimen while inpatient - Diabetes medications seem to have been discontinued per medication reconciliation # Hypertension, chronic. - Continue amlodipine Disposition: Patient is admitted under observation status. At time of discharge there was some confusion about who her primary care provider is; she seems to be in transition. She was advised to seek follow-up with primary care provider in one week. Exam Vital Signs (Last) Date Time Temp Pulse Resp B/P Pulse Ox O2 Delivery O2 Flow Rate FiO2 03/13/17 11:18 36.9 52 16 137/70 97 Room Air Exam General: Healthy-appearing elderly [place] woman in no acute distress HEENT: sclerae anicteric, oral mucosa moist Neck: no JVD Chest: clear to auscultation Cardiac: S1S2, no murmur Abdomen: BS normal, non-tender even with deep palpation Extremities: No edema Neuro: A&O, speaks [place] only, cranial nerves symmetric, motor strength 5/5, coordination normal Test 03/12/17 09:51 03/12/17 13:24 03/12/17 14:43 03/12/17 16:00 White Blood Count 7.5th/mm3 (3.8-10.1) Red Blood Count 3.58mil/mm3 (3.90-5.20) Mean Corpuscular Volume 87.2fL (81-100) Mean Corpuscular Hemoglobin 29.1pg (27.0-35.0) Mean Corpuscular Hemoglobin Concent 33.3% (32.0-37.0) Red Cell Distribution Width 13.0% (12.3-15.4) Platelet Count 289bil/L (150-400) Neutrophils (%) (Auto) 64.4% (40-74) Lymphocytes (%) (Auto) 24.6% (14-46) Monocytes (%) (Auto) 9.3% (4-12) Eosinophils (%) (Auto) 1.5% (0-5) Basophils (%) (Auto) 0.1% (0-3) Sodium Level 138mEq/L (134-144) Potassium Level 4.2mEq/L (3.5-5.2) Chloride Level 101mEq/L (97-108) Carbon Dioxide Level 23mmol/L (18-29) Blood Urea Nitrogen 16mg/dL (8-27) Creatinine 0.97mg/dL (0.57-1.00) Estimat Glomerular Filtration Rate 79mL/min (>59) Glucose Level 101mg/dL (60-99) Lactic Acid Level 1.1mmol/L (0.4-2.0) Calcium Level 9.2mg/dL (8.5-10.1) Magnesium Level 2.2mg/dL (1.6-2.6) Total Bilirubin 0.6mg/dL (0.0-1.2) Aspartate Amino Transf (AST/SGOT) 15U/L (0-50) Alanine Aminotransferase (ALT/SGPT) 8U/L (0-32) Alkaline Phosphatase 51U/L (25-165) Total Protein 7.3g/dL (6.4-8.4) Albumin 4.5g/dL (3.4-5.0) Lipase 34U/L (13-60) Troponin T < 0.010ug/L (0.0-0.011) Procalcitonin 0.07ng/mL (0.00-0.08) Urine Color Straw (YELLOW) Urine Appearance Clear (CLEAR,HAZY) Urine pH 6.5 (5.0-8.0) Urine Specific [place] 1.010 (1.003-1.035) Urine Protein Negativemg/dL (NEG,TRACE) Urine Glucose (UA) Negativemg/dL (NEGATIVE) Urine Ketones Negativemg/dL (NEGATIVE) Urine Occult Blood Small (NEGATIVE) Urine Nitrite Negative (NEGATIVE) Urine Bilirubin Negative (NEGATIVE) Urine Urobilinogen Normalmg/dL (NORMAL) Urine Leukocyte Esterase Small (NEGATIVE) Urine RBC 0-2/hpf (0-2) Urine WBC 0-5/hpf (0-5) Urine Epithelial Cells Few/hpf (NONE-MOD) Urine Crystals None seen (NONE SEEN) Urine Bacteria Few/hpf (NONE-FEW) Urine Hyaline Casts None/lpf (NONE) Urine Granular Casts None seen (NONE SEEN) Urine Waxy Casts None seen (NONE SEEN) Urine Red Blood Cell Casts None seen (NONE SEEN) Urine White Blood Cell Casts None seen (NONE SEEN) Urine Mucus None seen (None Seen) Urine Trichomonas None seen (NONE SEEN) Urine Yeast None (NONE SEEN) Urinalysis Comment None Urine Culture Reflexed Indicated Hemoglobin 10.5g/dL (12.0-15.6) Hematocrit 32.2% (35.0-46.0) Discharge Medications Discharge Medications Amlodipine (Amlodipine) 10 Mg Tablet 1 TABLET PO DAILY (Reported) Pantoprazole DR (Protonix) 40 Mg Tablet 40 MG PO BID Prescribed by: DL HERRERA MD Sucralfate (Carafate) 1 Gm Tablet 1 GM PO QID Prescribed by: LD HERRERA MD Additional med instructions TWO prescriptions for Protonix and Carafate has been sent to [facility]. You should check with your primary care provider about what medications to take for diabetes and blood pressure. Followup Plan Discharge Diet: Diabetic Discharge Activity: No restrictions Follow-up Provider: Srinivas Dasilva MD Follow-up with PCP in: 1 week (for a post hospital follow-up visit) Provider: Vj Alfredo MD Follow-up in: Other (contact the [facility] gastroenterology clinic for a follow-up with Dr. Alfredo or one of his colleagues in approximately 4-6 weeks) Time spent 35 minutes copies to: Srinivas Dasilva MD; Vj Alfredo MD, Jeffrey W MD Mar 13, 2017 13:46
[2017-03-13] MEDS ORDERED: Propofol 10,000 mCg/mL 20 mL Inj ONE (14:09)
--- NOTE | 2017-03-13 14:16 | NUR ---
Discharge Patient denies abd pain, VSS, A&Ox3. Ambulated in hallway, denies dizziness/weakness. Tolerating solid food. Discharge instructions and medication education printed and reviewed verbally with patient and family. Daughter who is the main caregiver acted as buccaro. IV DC'd intact. Patient ambulated off unit with all personal belongings, accompanied by daughter and son in law, transported home via personal vehicle.
--- NOTE | 2017-03-16 12:48 | PATH ---
SURGICAL PATHOLOGY Attending Physician:Yessica Prince MD CASE STATUS: Signed Out PATIENT NAME: CARMEN RIVERA PID: [id number] : 1935 DATE COLLECTED:03/13/2017 00:00 SPECIMEN: 1: Stomach, Antrum, Biopsy 2: Gastric, Biopsy 3: Esophagus, Biopsy CLINICAL HISTORY: 1). ANTRUM BIOPSY (RULE OUT H.PYLORI) 2). GASTRIC BODY BIOPSY (RULE OUT H.PYLORI) 3). DISTAL ESOPHAGUS BIOPSY (RULE OUT H.PYLORI) FINAL DIAGNOSIS: 1.ANTRUM, BIOPSY: GASTRIC ANTRAL-TYPE MUCOSA WITH CHRONIC AND FOCALLY ACTIVE GASTRITIS. Negative for Helicobacter pylori microorganisms by immunohistochemistry. Positive for intestinal metaplasia by Alcian blue stain. Negative for dysplasia and malignancy. 2.GASTRIC BODY BIOPSY: GASTRIC BODY-TYPE MUCOSA WITH MINIMAL CHRONIC GASTRITIS. Negative for neutrophilic inflammation. Negative for Helicobacter pylori microorganisms by immunohistochemical stain. Negative for intestinal metaplasia. Negative for dysplasia and malignancy. 3.DISTAL ESOPHAGUS BIOPSY: SQUAMOCOLUMNAR JUNCTIONAL MUCOSA WITH CHRONIC INFLAMMATION. Negative for Helicobacter pylori microorganisms by immunohistochemical stain. Negative for intestinal metaplasia. Negative for dysplasia and malignancy. [id number] GROSS DESCRIPTION: The specimen is received in three formalin filled containers labeled with the patient's name. 1). The specimen is labeled "antrum" and consists of a 0.3 x 0.3 x 0.2 CM portion of tissue which is entirely submitted in cassette 1A. 2). The specimen is labeled "gastric" and consists of a 0.3 x 0.2 x 0.2 CM portion of tissue which is entirely submitted in cassette 2A. 3). The specimen is labeled "distal esophagus" and consists of 2 portions of tissue which aggregate to 0.3 x 0.3 x 0.2 CM. The specimen is entirely submitted in cassette 3A. 03/14/2017DC MICRO DESCRIPTION: An immunohistochemical stain was performed to evaluate for Helicobacter pylori microorganisms on parts 1, 2 and 3. The control stains showed appropriate reactivity. Part 1: An Alcian blue stain was performed to evaluate for intestinal metaplasia. The control stain showed appropriate reactivity. This test was developed and its performance characteristics determined by the[facility]. It has not been cleared or approved by the U. S. Food and Drug Administration. The FDA has determined that such clearance or approval is not necessary. This test is used for clinical purposes. It should not be regarded as investigational or for research. ICD-9 CODES: CPT CODES: 1: 80486, 44917, 14274 2: 82806, 19422 3: 59270, 92245 Electronically Signed Out Juan Jose Allison MD [facility] [address], [place] [address] Technical component performed at [facility], [facility] [address], [place], [address]
== END 2017-03-13 14:10 | disposition home or self-care (01) ==
LOC: SED 09:04 → PCC 11:36
PROVIDERS: ADMIT Internal Medicine; ATTEND Internal Medicine
DX: K29.50 Unspecified chronic gastritis without bleeding (principal); K25.9 Gastric ulcer, unspecified as acute or chronic, without hemorrhage or perforation; K21.9 Gastro-esophageal reflux disease without esophagitis; I10 Essential (primary) hypertension; E11.9 Type 2 diabetes mellitus without complications; D62 Acute posthemorrhagic anemia; M19.90 Unspecified osteoarthritis, unspecified site; M81.0 Age-related osteoporosis without current pathological fracture; E53.8 Deficiency of other specified B group vitamins; E78.5 Hyperlipidemia, unspecified; Z85.3 Personal history of malignant neoplasm of breast; Z79.84 Long term (current) use of oral hypoglycemic drugs; Z79.82 Long term (current) use of aspirin
CPT/HCPCS: 36415; 43239; 74177; 74181; 76705; 80053; 81000; 82948; 83036; 83605; 83690; 83735; 84145; 84484; 85014; 85018; 85025; 86850; 87086; 87088; 93005; 96361; 96374; 96375; 96376; 99285; G0378; J1170; J1644; J1815; J2405; J3490; J7030; J7120; Q9967